=== PATIENT | male | born 1955 ===

== ENCOUNTER 2023-11-22 11:15 | Emergency (ER) | payer OTHER ==
--- NOTE | 2023-11-22 11:38 | ED ---
SOB HPI - General Source: patient Mode of arrival: ambulatory Limitations: no limitations <Renate Roman - Last Filed: 11/22/23 11:38> - General Source: patient, RN notes reviewed Mode of arrival: ambulatory Limitations: no limitations <Sahil Funk - Last Filed: 11/22/23 14:39> - General Stated Complaint: CHEST PAIN Time Seen by Provider: 11/22/23 11:39 - History of Present Illness Initial Comments: The patient's a 68-year-old gentleman who presents emergency room with complaints of cough and shortness breath for 10 days. States that the cough and shortness breath is worse at night. Patient denies any history of CHF or COPD. O2 sat in triage is 92% and he is tachycardic. He has a temp of 102.3. Denies any history of A. fib or irregular rhythms. (Renate Roman) - Related Data Home Medications Medication Instructions Recorded Confirmed Losartan Potassium [Cozaar] 100 mg PO DAILY 11/22/23 11/22/23 hydroCHLOROthiazide [Hydrodiuril] 25 mg PO DAILY 11/22/23 11/22/23 Previous Rx's Medication Instructions Recorded Azithromycin [Zithromax Z Pack] 0 tab PO DIRECTED #6 tab 11/22/23 Allergies Allergy/AdvReac Type Severity Reaction Status Date / Time No Known Allergies Allergy Verified 11/22/23 13:10 Review of Systems ROS Other: All systems not noted in ROS Statement are negative. <Renate Roman - Last Filed: 11/22/23 11:38> ROS Other: All systems not noted in ROS Statement are negative. <Sahil Funk - Last Filed: 11/22/23 14:39> ROS Statement: Those systems with pertinent positive or pertinent negative responses have been documented in the HPI. Past Medical History Past Medical History: GERD/Reflux History of Any Multi-Drug Resistant Organisms: None Reported Past Surgical History: No Surgical Hx Reported Additional Past Surgical History / Comment(s): LIPOMA REMOVED FROM BACK Past Anesthesia/Blood Transfusion Reactions: No Reported Reaction Past Psychological History: No Psychological Hx Reported Smoking Status: Never smoker Past Alcohol Use History: Occasional Past Drug Use History: None Reported - Past Family History Mother Family Medical History: No Reported History <Renate Roman - Last Filed: 11/22/23 11:38> General Exam Limitations: no limitations <Renate Roman - Last Filed: 11/22/23 11:38> General appearance: alert, in no apparent distress Head exam: Present: atraumatic, normocephalic, normal inspection Eye exam: Present: normal appearance, PERRL, EOMI. Absent: scleral icterus, conjunctival injection, periorbital swelling ENT exam: Present: normal exam, normal oropharynx, mucous membranes moist Neck exam: Present: normal inspection, full ROM. Absent: tenderness, meningismus, lymphadenopathy Respiratory exam: Absent: normal lung sounds bilaterally, respiratory distress, wheezes, rales, rhonchi, stridor Cardiovascular Exam: Present: normal rhythm, tachycardia, normal heart sounds. Absent: systolic murmur, diastolic murmur, rubs, gallop, clicks GI/Abdominal exam: Present: soft, normal bowel sounds. Absent: distended, ten derness, guarding, rebound, rigid <Sahil Funk - Last Filed: 11/22/23 14:39> - General Exam Comments Initial Comments: Visual Physical Exam Vital signs reviewed General: Well-appearing, nontoxic, no acute distress. Head: Normocephalic, atraumatic Eyes: PERRLA, EOMI ENT: Airway patent Chest: Mildl labored breathing, tachycardic Skin: No visual rash, normal skin tone Neuro: Alert and oriented 3 Musculoskeletal: No gross abnormalities (Renate Roman) Course Vital Signs 11/22/23 11/22/23 11/22/23 11:34 13:09 13:43 Temperature 102.4 F H 101.6 F H 101.2 F H Pulse Rate 123 H 96 Respiratory 18 18 Rate Blood Pressure 161/89 156/80 O2 Sat by Pulse 93 L 93 L Oximetry Medical Decision Making <Renate Roman - Last Filed: 11/22/23 11:38> <Sahil Funk - Last Filed: 11/22/23 14:39> - Medical Decision Making Quick note portion completed by myself, electronically PAC. Frankie (Renate Roman) Was pt. sent in by a medical professional or institution (, PA, CREDIT RELATIONSHIP MANAGER, urgent care, hospital, or snf...) When possible be specific @ -No Did you speak to anyone other than the patient for history (EMS, parent, family, police, friend...)? What history was obtained from this source @ -No Did you review nursing and triage notes (agree or disagree)? Why? @ -I reviewed and agree with nursing and triage notes Were old charts reviewed (outside hosp., previous admission, EMS record, old EKG, old radiological studies, urgent care reports/EKG's, snf records)? Report findings @ -No old charts were reviewed Differential Diagnosis (chest pain, altered mental status, abdominal pain women, abdominal pain men, vaginal bleeding, weakness, fever, dyspnea, syncope, headache, dizziness, GI bleed, back pain, seizure, CVA, palpatations, mental health, musculoskeletal)? @ -[MDM eventually URI EKG interpreted by me (3pts min.). @ -None X-rays interpreted by me (1pt min.). @ -Chest x-ray showing evidence of pneumonia CT interpreted by me (1pt min.). @ -None done U/S interpreted by me (1pt. min.). @ -None done What testing was considered but not performed or refused? (CT, X-rays, U/S, labs)? Why? @ -I did recommend having laboratory studies, blood cultures, IV antibiotics patient claims states that he does not want to be here any longer stating he understands the risk of leaving What meds were considered but not given or refused? Why? @ -None Did you discuss the management of the patient with other professionals (professionals i.e. , PA, CREDIT RELATIONSHIP MANAGER, lab, RT, psych nurse, community mental health social worker, procedures rn, te acher, chief strategy officer, case fitter)? Give summary @ -No Was smoking cessation discussed for >3mins.? @ -No Was critical care preformed (if so, how long)? @ -No Were there social determinants of health that impacted care today? How? (Homelessness, low income, unemployed, alcoholism, drug addiction, transportation, low edu. Level, literacy, decrease access to med. care, detention, rehab)? @ -No Was there de-escalation of care discussed even if they declined (Discuss DNR or withdrawal of care, Hospice)? DNR status @ -No What co-morbidities impacted this encounter? (DM, HTN, Smoking, COPD, CAD, Cancer, CVA, ARF, Chemo, Hep., AIDS, mental health diagnosis, sleep apnea, morbid obesity)? @ -None Was patient admitted / discharged? Hospital course, mention meds given and route, prescriptions, significant lab abnormalities, going to OR and other pertinent info. @ -[Patient refused any further treatment. Patient was given Rocephin discharged on azithromycin patient has evidence of pneumonia he was recommended to be admitted, IV antibiotics. Patient refuses. Undiagnosed new problem with uncertain prognosis? @ -No Drug Therapy requiring intensive monitoring for toxicity (Heparin, Nitro, Insulin, Cardizem)? @ -No Were any procedures done? @ -No Diagnosis/symptom? @ -[Pneumonia Acute, or Chronic, or Acute on Chronic? @ -Acute Uncomplicated (without systemic symptoms) or Complicated (systemic symptoms)? @ -Complicated Side effects of treatment? @ -[No Exacerbation, Progression, or Severe Exacerbation? @ -No Poses a threat to life or bodily function? How? (Chest pain, [place], [place], pneumonia, PE, COPD, DKA, ARF, appy, cholecystitis, CVA, Diverticulitis, Homicidal, Suicidal, threat to staff... and all critical care pts) @ -[Yes pneumonia (Sahil Funk) - Lab Data Lab Results 11/22/23 Range/Units 11:38 Influenza Type A (PCR) Not Detected (Not Detectd) Influenza Type B (PCR) Not Detected (Not Detectd) RSV (PCR) Not Detected (Not Detectd) SARS-CoV-2 (PCR) Not Detected (Not Detectd) Disposition <Renate Roman - Last Filed: 11/22/23 11:38> Is patient prescribed a controlled substance at d/c from ED?: No Time of Disposition: 13:13 <Sahil Funk - Last Filed: 11/22/23 14:39> Clinical Impression: Pneumonia Disposition: HOME SELF-CARE Condition: Stable Instructions (If sedation given, give patient instructions): Pneumonia (ED) Additional Instructions: Please return to the Emergency Department if symptoms worsen or any other concerns. Prescriptions: Azithromycin [Zithromax Z Pack] 0 tab PO DIRECTED #6 tab Referrals: None,Stated [Primary Care Provider] - 1-2 days
[2023-11-22 11:55] VITALS: RESP 18
--- NOTE | 2023-11-22 12:00 | XR ---
EXAMINATION TYPE: XR chest 2V DATE OF EXAM: 11/22/2023 11:52 AM CLINICAL INDICATION:Male, 68 years old with history of chest pain; [facility] COMPARISON: None TECHNIQUE: XR chest 2V Frontal and lateral views of the chest. FINDINGS: Lungs/Pleura: Airspace opacities project over the lung base on the lateral view. There is no evidence of pleural effusion, focal consolidation, or pneumothorax. Pulmonary vascularity: Unremarkable. Heart/mediastinum: Cardiomediastinal silhouette is unremarkable. Musculoskeletal: No acute osseous pathology. Other findings: None Lines/Tubes: IMPRESSION: Airspace opacities projecting over the base on lateral view correlate for pneumonia.
[2023-11-22] MEDS: ACETAMINOPHEN TAB 500 MG TAB PO STA (12:04)
[2023-11-22] MEDS: SODIUM CHLORIDE 0.9% 1,000 ML IV STA (13:07)
[2023-11-22] MEDS: CEFEPIME 2 GM in SODIUM CHLORIDE 0.9% 100 ML IVPB STA (13:07)
[2023-11-22] MEDS: cefTRIAXone 1,000 MG VIAL (IM USE) IM STA (13:35)
[2023-11-22 14:00] VITALS: BP 156/80; PULSE 96; TEMP 101.2
== END 2023-11-22 13:44 | disposition home or self-care (01) ==
LOC: EC 11:15
DX: J18.9 Pneumonia, unspecified organism (principal); Z20.822 Contact with and (suspected) exposure to COVID-19
CPT/HCPCS: 87636; 71046; 99285; 96372; J0696

== ENCOUNTER 2023-12-07 11:26 | Emergency (ER) | payer OTHER ==
--- NOTE | 2023-12-07 11:38 | ED ---
General Adult HPI - General Source: patient, RN notes reviewed Mode of arrival: ambulatory Limitations: no limitations <Sahil Funk - Last Filed: 12/07/23 11:37> - General Source: RN notes reviewed, old records reviewed Mode of arrival: ambulatory Limitations: no limitations - History of Present Illness -: week(s) Location: chest Severity scale (1-10): 4 Quality: sharp Consistency: intermittent Improves with: none Worsens with: none Associated Symptoms: chest pain, shortness of breath, weakness Treatments Prior to Arrival: none <Stas Flowers - Last Filed: 12/16/23 19:20> - General Stated complaint: abd pain Time Seen by Provider: 12/07/23 11:31 - History of Present Illness Initial comments: 68-year-old male presents emergency department chief complaint shortness of b reath. Patient states he recently diagnosed with influenza. Patient states he started feeling better but has not worsened. Patient states that he is also urinating a large amount. Patient states he may have had a fever. He denies any chest pain or chest tightness. No headache. (Sahil Funk) This is a 68-year-old male to the ER for evaluation of shortness of breath with recent diagnosis of influenza A increased cough and congestion difficulty with urination dehydration and weakness. Patient has not been feeling well for a few weeks (Stas Flowers) - Related Data Home Medications Medication Instructions Recorded Confirmed Losartan Potassium [Cozaar] 100 mg PO DAILY 11/22/23 11/22/23 hydroCHLOROthiazide [Hydrodiuril] 25 mg PO DAILY 11/22/23 11/22/23 Previous Rx's Medication Instructions Recorded Azithromycin [Zithromax Z Pack] 0 tab PO DIRECTED #6 tab 11/22/23 Amoxic-Pot Clav 875-125Mg 1 tab PO Q12HR #20 tablet 12/07/23 [Augmentin 875-125] Azithromycin [Zithromax] 500 mg PO DAILY 5 Days #5 tab 12/07/23 Allergies Allergy/AdvReac Type Severity Reaction Status Date / Time No Known Allergies Allergy Verified 12/07/23 12:08 Review of Systems ROS Other: All systems not noted in ROS Statement are negative. <Sahil Funk - Last Filed: 12/07/23 11:37> ROS Other: All systems not noted in ROS Statement are negative. <Stas Flowers - Last Filed: 12/16/23 19:20> ROS Statement: Those systems with pertinent positive or pertinent negative responses have been documented in the HPI. Past Medical History Past Medical History: GERD/Reflux History of Any Multi-Drug Resistant Organisms: None Reported Past Surgical History: No Surgical Hx Reported Additional Past Surgical History / Comment(s): LIPOMA REMOVED FROM BACK Past Anesthesia/Blood Transfusion Reactions: No Reported Reaction Past Psychological History: No Psychological Hx Reported Smoking Status: Never smoker Past Alcohol Use History: Occasional Past Drug Use History: None Reported - Past Family History Mother Family Medical History: No Reported History <Sahil Funk - Last Filed: 12/07/23 11:37> General Exam <Sahil Funk - Last Filed: 12/07/23 11:37> General appearance: alert, in no apparent distress Head exam: Present: atraumatic, normocephalic, normal inspection Eye exam: Present: normal appearance, PERRL, EOMI. Absent: scleral icterus, conjunctival injection, periorbital swelling ENT exam: Present: normal exam, mucous membranes moist Neck exam: Present: normal inspection. Absent: tenderness, meningismus, lymphadenopathy Respiratory exam: Present: normal lung sounds bilaterally. Absent: respiratory distress, wheezes, rales, rhonchi, stridor Cardiovascular Exam: Present: regular rate, normal rhythm, normal heart sounds. Absent: systolic murmur, diastolic murmur, rubs, gallop, clicks GI/Abdominal exam: Present: soft, normal bowel sounds. Absent: distended, tenderness, guarding, rebound, rigid Extremities exam: Present: normal inspection, full ROM, normal capillary refill. Absent: tenderness, pedal edema, joint swelling, calf tenderness Back exam: Present: normal inspection Neurological exam: Present: alert, oriented X3, CN II-XII intact Psychiatric exam: Present: normal affect, normal mood Skin exam: Present: warm, dry, intact, normal color. Absent: rash <Stas Flowers - Last Filed: 12/16/23 19:20> - General Exam Comments Initial Comments: Visual Physical Exam Vital signs reviewed General: Well-appearing, nontoxic, no acute distress. Head: Normocephalic, atraumatic Eyes: PERRLA, EOMI ENT: Airway patent Chest: Nonlabored breathing Skin: No visual rash, normal skin tone Neuro: Alert and oriented 3 Musculoskeletal: No gross abnormalities (Sahil Funk) Course <Stas Flowers - Last Filed: 12/16/23 19:20> Vital Signs 12/07/23 12/07/23 12/07/23 12:05 12:40 12:47 Temperature 98.6 F Pulse Rate 133 H 120 H Respiratory 26 H 22 20 Rate Blood Pressure 144/94 143/98 O2 Sat by Pulse 92 L 93 L Oximetry 12/07/23 12/07/23 12/07/23 13:08 13:38 13:46 Temperature Pulse Rate 120 H 124 H 120 H Respiratory 22 Rate Blood Pressure 135/68 O2 Sat by Pulse 98 Oximetry 12/07/23 12/07/23 15:00 16:32 Temperature 98.0 F Pulse Rate 91 85 Respiratory 18 20 Rate Blood Pressure 146/88 125/78 O2 Sat by Pulse 97 97 Oximetry - Reevaluation(s) Reevaluation #1: 12/07/23 14:30 Medical records reviewed (Stas Flowers) Reevaluation #2: 12/07/23 14:30 Patient is feeling better (Stas Flowers) Reevaluation #3: Patient informed of results and questions answered Patient feels good for discharge (Stas Flowers) Reevaluation #4: Was pt. sent in by a medical professional or institution (, PA, BULLDOZER MECHANIC, urgent care, hospital, or fci...) When possible be specific @ -no Did you speak to anyone other than the patient for history (EMS, parent, family, police, friend...)? What history was obtained from this source @ -no Did you review nursing and triage notes (agree or disagree)? Why? @ -agree Are old charts reviewed (outside hosp., previous admission, EMS record, old EKG, old radiological studies, urgent care reports/EKG's, fci records)? Report findings @ -yes Differential Diagnosis (chest pain, altered mental status, abdominal pain women, abdominal pain men, vaginal bleeding, weakness, fever, dyspnea, syncope, headache, dizziness, GI bleed, back pain, seizure, CVA, palpatations, mental health, musculoskeletal)? @ -prior EKG interpreted by me (3pts min.). @ -yes X-rays interpreted by me (1pt min.). @ -yes negative for acute disease CT interpreted by me (1pt min.). @ -Yes negative for acute disease U/S interpreted by me (1pt. min.). @ -no What testing was considered but not performed or refused? (CT, X-rays, U/S, labs)? Why? @ -none What meds were considered but not given or refused? Why? @ -none Did you discuss the management of the patient with other professionals (professionals i.e. DrAlyse, PA, BULLDOZER MECHANIC, lab, RT, psych nurse, nursing home social worker, literacy education professor, teacher, commanding officer motorized squad, casey saw operator)? Give summary @ -no Was smoking cessation discussed for >3mins.? @ -no Was critical care preformed (if so, how long)? @ -no Were there social determinants of health that impacted care today? How? (Homelessness, low income, unemployed, alcoholism, drug addiction, transportation, low edu. Level, literacy, decrease access to med. care, intermediate, rehab)? @ -none Was there de-escalation of care discussed even if they declined (Discuss DNR or withdrawal of care, Hospice)? DNR status @ -no What co-morbidities impacted this encounter? (DM, HTN, Smoking, COPD, CAD, Cancer, CVA, ARF, Chemo, Hep., AIDS, mental health diagnosis, sleep apnea, morbid obesity)? @ -none Was patient admitted / discharged? Hospital course, mention meds given and route, prescriptions, significant lab abnormalities, going to OR and other pertinent info. @ - 68 male to the ER for evaluation was found to have significant pneumonia here in the ER placed on antibiotics, patient feels improved here in the ER is in no shortness of breath, patient prefers discharge home Discharge Undiagnosed new problem with uncertain prognosis? @ -no Drug Therapy requiring intensive monitoring for toxicity (Heparin, Nitro, Insulin, Cardizem)? @ -no Were any procedures done? @ -no Diagnosis/symptom? @ -Acute pneumonia with chest pain and abdominal pain Acute, or Chronic, or Acute on Chronic? @ -Acute Uncomplicated (without systemic symptoms) or Complicated (systemic symptoms)? @ -Complicated Side effects of treatment? @ -no Exacerbation, Progression, or Severe Exacerbation? @ -exacerbation Poses a threat to life or bodily function? How? (Chest pain, [place], [place], pneumonia, PE, COPD, DKA, ARF, appy, cholecystitis, CVA, Diverticulitis, Homicidal, Suicidal, threat to staff... and all critical care pts) @ -yes with significant infection (Stas Flowers) Reevaluation #5: Differential Dyspnea: Coronary syndrome, arrhythmia, tamponade, asthma, COPD, pulmonary embolism, pneumonia, pneumothorax, pulmonary effusion, anaphylaxis, diabetic ketoacidosis, flailed chest, pulmonary contusion, diaphragmatic rupture, anemia, neuromuscular, this is not meant to be an all-inclusive list. Differential Chest Pain: Stable Angina, Unstable Angina, STEMI, NSTEMI Aortic Dissection, Pneumothorax, Musculoskeletal, Esophageal Spasm GERD, Cholecystitis, Pancreatitis, Zoster, this is not meant to be an all-inclusive list. Differential Abdominal Pain Men: Appendicitis, cholecystitis, diverticulosis, ischemic bowel, pancreatitis, hepatitis, UTI, gastroenteritis, AAA, incarcerated hernia, bowel obstruction, constipation, inflammatory bowel, hepatitis, peptic ulcer disease, splenic infarction, perforated viscus, testicular torsion, this is not meant to be an all-inclusive list (Stas Flowers) EKG Findings - EKG Comments: EKG Findings:: EKG sinus tachycardia 117 OK 140 QRS 87 QTc 381 - EKG Results: EKG: interpreted by ERMD <Stas Flowers - Last Filed: 12/16/23 19:20> Medical Decision Making <Sahil Funk - Last Filed: 12/07/23 11:37> - Lab Data Result diagrams: 12/07/23 12:40 12/07/23 12:40 - EKG Data -: EKG Interpreted by Wa - Radiology Data Radiology results: report reviewed (Chest x-ray CT angio is positive for pneumonia), image reviewed <Stas Flowers - Last Filed: 12/16/23 19:20> - Medical Decision Making I completed the quick note portion of this chart signed Sahil Funk PA-C (Sahil Funk) 68 male to the ER for evaluation was found to have significant pneumonia here in the ER placed on antibiotics, patient feels improved here in the ER is in no shortness of breath, patient prefers discharge home (Stas Flowers) - Lab Data Lab Results 12/07/23 12/07/23 12/07/23 Range/Units 12:11 12:40 12:40 WBC 11.9 H (3.8-10.6) k/uL RBC 4.65 (4.30-5.90) m/uL Hgb 13.7 (13.0-17.5) gm/dL Hct 41.4 (39.0-53.0) % MCV 89.0 (80.0-100.0) fL MCH 29.5 (25.0-35.0) pg MCHC 33.1 (31.0-37.0) g/dL RDW 14.1 (11.5-15.5) % Plt Count 572 H (150-450) k/uL MPV 7.2 Neutrophils % 81 % Lymphocytes % 9 % Monocytes % 6 % Eosinophils % 1 % Basophils % 1 % Neutrophils # 9.6 H (1.3-7.7) k/uL Lymphocytes # 1.1 (1.0-4.8) k/uL Monocytes # 0.7 (0-1.0) k/uL Eosinophils # 0.1 (0-0.7) k/uL Basophils # 0.1 (0-0.2) k/uL Sodium (137-145) mmol/L Potassium (3.5-5.1) mmol/L Chloride (98-107) mmol/L Carbon Dioxide (22-30) mmol/L Anion Gap mmol/L BUN (9-20) mg/dL Creatinine (0.66-1.25) mg/dL Est GFR (CKD-EPI)AfAm (>60 ml/min/1.73 sqM) Est GFR (CKD-EPI)NonAf (>60 ml/min/1.73 sqM) Glucose (74-99) mg/dL Calcium (8.4-10.2) mg/dL Total Bilirubin (0.2-1.3) mg/dL AST (17-59) U/L ALT (4-49) U/L Alkaline Phosphatase (38-126) U/L Troponin I (0.000-0.034) ng/mL Total Protein (6.3-8.2) g/dL Albumin (3.5-5.0) g/dL Urine Color Light Yellow Urine Appearance Clear (Clear) Urine pH 5.5 (5.0-8.0) Ur Specific [place] 1.011 (1.001-1.035) Urine Protein Trace H (Negative) Urine Glucose (UA) Negative (Negative) Urine Ketones Negative (Negative) Urine Blood Trace H (Negative) Urine Nitrite Negative (Negative) Urine Bilirubin Negative (Negative) Urine Urobilinogen <2.0 (<2.0) mg/dL Ur Leukocyte Esterase Negative (Negative) Urine RBC 2 (0-5) /hpf Urine WBC 4 (0-5) /hpf Ur Squamous Epith Cells <1 (0-4) /hpf Urine Bacteria Rare H (None) /hpf Hyaline Casts 6 H (0-2) /lpf Urine Mucus Rare H (None) /hpf Influenza Type A (PCR) Not Detected (Not Detectd) Influenza Type B (PCR) Not Detected (Not Detectd) RSV (PCR) Not Detected (Not Detectd) SARS-CoV-2 (PCR) Not Detected (Not Detectd) 12/07/23 12/07/23 Range/Units 12:40 12:40 WBC (3.8-10.6) k/uL RBC (4.30-5.90) m/uL Hgb (13.0-17.5) gm/dL Hct (39.0-53.0) % MCV (80.0-100.0) fL MCH (25.0-35.0) pg MCHC (31.0-37.0) g/dL RDW (11.5-15.5) % Plt Count (150-450) k/uL MPV Neutrophils % % Lymphocytes % % Monocytes % % Eosinophils % % Basophils % % Neutrophils # (1.3-7.7) k/uL Lymphocytes # (1.0-4.8) k/uL Monocytes # (0-1.0) k/uL Eosinophils # (0-0.7) k/uL Basophils # (0-0.2) k/uL Sodium 134 L (137-145) mmol/L Potassium 4.5 (3.5-5.1) mmol/L Chloride 106 (98-107) mmol/L Carbon Dioxide 21 L (22-30) mmol/L Anion Gap 7 mmol/L BUN 19 (9-20) mg/dL Creatinine 0.84 (0.66-1.25) mg/dL Est GFR (CKD-EPI)AfAm >90 (>60 ml/min/1.73 sqM) Est GFR (CKD-EPI)NonAf >90 (>60 ml/min/1.73 sqM) Glucose 152 H (74-99) mg/dL Calcium 8.8 (8.4-10.2) mg/dL Total Bilirubin 0.8 (0.2-1.3) mg/dL AST 51 (17-59) U/L ALT 73 H (4-49) U/L Alkaline Phosphatase 99 (38-126) U/L Troponin I <0.012 (0.000-0.034) ng/mL Total Protein 7.2 (6.3-8.2) g/dL Albumin 3.4 L (3.5-5.0) g/dL Urine Color Urine Appearance (Clear) Urine pH (5.0-8.0) Ur Specific [place] (1.001-1.035) Urine Protein (Negative) Urine Glucose (UA) (Negative) Urine Ketones (Negative) Urine Blood (Negative) Urine Nitrite (Negative) Urine Bilirubin (Negative) Urine Urobilinogen (<2.0) mg/dL Ur Leukocyte Esterase (Negative) Urine RBC (0-5) /hpf Urine WBC (0-5) /hpf Ur Squamous Epith Cells (0-4) /hpf Urine Bacteria (None) /hpf Hyaline Casts (0-2) /lpf Urine Mucus (None) /hpf Influenza Type A (PCR) (Not Detectd) Influenza Type B (PCR) (Not Detectd) RSV (PCR) (Not Detectd) SARS-CoV-2 (PCR) (Not Detectd) Disposition <Sahil Funk - Last Filed: 12/07/23 11:37> Is patient prescribed a controlled substance at d/c from ED?: No Time of Disposition: 15:50 <Stas Flowers - Last Filed: 12/16/23 19:20> Clinical Impression: Pneumonia, Acute pneumonia, Community acquired pneumonia Disposition: HOME SELF-CARE Condition: Good Instructions (If sedation given, give patient instructions): Community Acquired Pneumonia (ED) Prescriptions: Amoxic-Pot Clav 875-125Mg [Augmentin 875-125] 1 tab PO Q12HR #20 tablet Azithromycin [Zithromax] 500 mg PO DAILY 5 Days #5 tab Referrals: None,Stated [REFERRING] - 1-2 days
[2023-12-07 12:55] LABS: Basophils # (A) 0.1 k/uL (0-0.2); Basophils % (A) 1 %; Eosinophils # (A) 0.1 k/uL (0-0.7); Eosinophils % (A) 1 %; HCT 41.4 % (39.0-53.0); HGB 13.7 gm/dL (13.0-17.5); Lymphocytes # (A) 1.1 k/uL (1.0-4.8); Lymphocytes % (A) 9 %; MCH 29.5 pg (25.0-35.0); MCHC 33.1 g/dL (31.0-37.0); Mean Platelet Volume 7.2; Monocytes # (A) 0.7 k/uL (0-1.0); Monocytes % (A) 6 %; Neutrophils # (A) 9.6 k/uL (1.3-7.7); Neutrophils % (A) 81 %; Platelet Count 572 k/uL (150-450); RBC 4.65 m/uL (4.30-5.90); RDW 14.1 % (11.5-15.5); WBC 11.9 k/uL (3.8-10.6)
[2023-12-07 13:06] LABS: ALT 73 U/L (4-49); AST 51 U/L (17-59); African American GFR (CKD) >90 (>60 ml/min/1.73 sqM); Albumin 3.4 g/dL (3.5-5.0); Alkaline Phosphatase 99 U/L (38-126); Anion Gap 7 mmol/L; Appearance,Urine Clear (Clear); Bacteria,Urine Rare /hpf; Bilirubin,Urine Negative (Negative); Blood Urea Nitrogen 19 mg/dL (9-20); Blood,Urine Trace (Negative); Calcium 8.8 mg/dL (8.4-10.2); Carbon Dioxide 21 mmol/L (22-30); Chloride 106 mmol/L (98-107); Color,Urine Light Yellow; Glucose 152 mg/dL (74-99); Glucose,Urine (UA) Negative (Negative); Hyaline Casts,Urine 6 /lpf (0-2); Ketones,Urine Negative (Negative); Leukocyte Esterase,Urine Negative (Negative); Mucus,Urine Rare /hpf; Nitrite,Urine Negative (Negative); Non-African American GFR(CKD) >90 (>60 ml/min/1.73 sqM); PH, Urine 5.5 (5.0-8.0); Potassium 4.5 mmol/L (3.5-5.1); Protein,Urine Trace (Negative); RBC,Urine 2 /hpf (0-5); Sodium 134 mmol/L (137-145); Specific Gravity,Urine 1.011 (1.001-1.035); Squamous Epithelial Cell,Urine <1 /hpf (0-4); Total Bilirubin 0.8 mg/dL (0.2-1.3); Total Protein 7.2 g/dL (6.3-8.2); Urobilinogen,Urine <2.0 mg/dL (<2.0); WBC,Urine 4 /hpf (0-5)
[2023-12-07] MEDS: SODIUM CHLORIDE 0.9% 1,000 ML IV STA (13:20)
--- NOTE | 2023-12-07 13:20 | XR ---
EXAMINATION TYPE: XR chest 2V DATE OF EXAM: 12/07/2023 COMPARISON: 11/22/2023 HISTORY: 68 year-old male shortness of breath, difficulty breathing TECHNIQUE: PA and lateral views FINDINGS: Heart normal size. Low lung volumes. Multifocal patchy airspace opacities have increased. No sizable pleural effusion. IMPRESSION: Increasing multifocal bilateral airspace disease. Correlate for multifocal pneumonia or other infecti ous/inflammatory etiology.
[2023-12-07] MEDS: IPRATROPIUM-ALBUTEROL 3 ML NEB INHALATION STA (13:35)
--- NOTE | 2023-12-07 14:21 | CT ---
EXAMINATION TYPE: CT angio chest CT DLP: 1099.4 mGycm, Automated exposure control for dose reduction was used. DATE OF EXAM: 12/07/2023 2:02 PM COMPARISON: Chest radiograph from same day. CLINICAL INDICATION:Male, 68 years old with history of pain; pain TECHNIQUE/CONTRAST: CTA scan of the thorax is performed with IV Contrast, patient injected with 100 mL of Isovue 300, MIP images are created and reviewed these are created on a separate workstation.. FINDINGS: Pulmonary Artery: There is no evidence for a central filling defect within the pulmonary vasculature to suggest acute pulmonary embolism. Limited evaluation of the segmental and subsegmental branches se condary to bolus timing. The pulmonary artery is of normal size. Lungs/Pleura: Scattered peripheral groundglass opacities with additional more consolidative opacities in the lung bases. No evidence for pneumothorax or pleural effusion. Airway: Large airways are patent. Heart: Heart is within normal limits for size. Vasculature: No evidence of aortic aneurysm. Mediastinum: Right low paratracheal lymph node measuring up to 11 mm in short axis. AP window lymph n ode measuring up to 9 mm in short axis. Musculoskeletal: No acute osseous abnormalities Soft Tissues: Unremarkable. Lower neck: No significant findings. Upper Abdomen: Multiple hepatic probable cyst. Few scattered colonic diverticula. IMPRESSION: 1. No evidence of central pulmonary embolism. Limited evaluation of the segmental and subsegmental br anches. 2. Peripheral multifocal airspace opacities some of which have an atypical appearance others appear m ore typical pneumonia. 3. Reactive mediastinal lymphadenopathy likely secondary to #2. Follow up recommendations for incidental pulmonary nodules, if there are any, are per [employer] or [employer] [place] [employer]. [email or web address].org/articles/[email or web address]?lang=us
--- NOTE | 2023-12-07 14:31 | CT ---
EXAMINATION TYPE: CT abdomen pelvis w con CT DLP: 1099 mGycm, Automated exposure control for dose reduction was used. DATE OF EXAM: 12/07/2023 2:02 PM COMPARISON: None CLINICAL INDICATION:Male, 68 years old with history of pain; TECHNIQUE: Axial CT abdomen pelvis w con;Sagittal and coronal reformats were created on a separate w orkstation. Contrast used: mL of , (none if empty) Oral contrast used: (none if empty) FINDINGS: LIVER: Few scattered probable hepatic cyst. GALLBLADDER AND BILE DUCTS: Unremarkable. PANCREAS: Unremarkable. SPLEEN: Unremarkable. ADRENAL GLANDS: Unremarkable. KIDNEYS AND URETERS: No evidence of hydronephrosis or renal calculus. The ureters are unremarkable. Bilateral simple appearing probable renal cysts. PELVIS BLADDER: Unremarkable REPRODUCTIVE: Prostate is enlarged in size measuring 6.1 cm in transverse dimension. ABDOMEN & PELVIS STOMACH AND BOWEL: No evidence of bowel obstruction. Appendix is normal. Few scattered colonic divert icula. PERITONEUM/RETROPERITONEUM: No evidence of pneumoperitoneum or free fluid. VASCULATURE: No evidence of aortic aneurysm. Scattered atherosclerosis of the arterial vasculature. MUSCULOSKELETAL: No acute osseous abnormalities. Mild disc degeneration changes are present throughou t the thoracolumbar spine. LYMPH NODES: No gross evidence for lymphadenopathy. SOFT TISSUE/ABDOMINAL WALL: Unremarkable IMPRESSION: 1. No evidence for acute abdominal process. 2. Prostatomegaly, correlate with serum PSA. 3. Colonic diverticulosis. 4. CT chest for findings regarding pneumonia.
[2023-12-07] MEDS: AMOXIC-POT CLAV 875-125MG 1 EACH TAB PO STA (16:04)
[2023-12-07] MEDS: cefTRIAXone IN SWFI 1,000 MG/10 ML SYRINGE IVP STA (16:05)
[2023-12-07] MEDS: AZITHROMYCIN 500 MG TAB PO STA (16:05)
[2023-12-07] MEDS: AMOXIC-POT CLAV 875MG STARTER PACK 2 TAB BTL PO STA (16:05)
[2023-12-07 16:34] VITALS: BP 125/78; PULSE 85; RESP 20; TEMP 98
== END 2023-12-07 16:33 | disposition home or self-care (01) ==
LOC: EC 11:26
DX: J18.9 Pneumonia, unspecified organism (principal); J10.00 Influenza due to other identified influenza virus with unspecified type of pneumonia; K57.30 Diverticulosis of large intestine without perforation or abscess without bleeding; N40.0 Benign prostatic hyperplasia without lower urinary tract symptoms; Z20.822 Contact with and (suspected) exposure to COVID-19
CPT/HCPCS: 99285; 36415; 94640; 93005; 80053; 84484; 85025; 81001; 87636; 71046; 71275; 74177; 96374; 96361; J0696; Q9967